=== PATIENT | female | born 1945 | race Caucasian/White ===

== ENCOUNTER 2017-10-19 03:54 | Emergency (ER) | payer MEDICAID, MEDICARE ==
[2017-10-19] MEDS ORDERED: fentaNYL* 50 MCG/ML 2 ML VIAL (100 MCG VIAL) IV SLOW PU ONE ×2 (04:20→05:54)
[2017-10-19] MEDS ORDERED: NS 0.9% 1000 ML* 1,000 ML IV ONE (04:20)
[2017-10-19] MEDS ORDERED: Ondansetron INJ* 2 MG/ML VIAL IV ONE (04:21)
[2017-10-19] MEDS ORDERED: diPHENhydraMINE IV* 50 MG/ML 1 ml VIAL (BENADRYL) SLOW PUSH ONE (04:47)
[2017-10-19] MEDS ORDERED: diPHENhydraMINE IV* 50 MG/ML 1 ml VIAL (BENADRYL) ONE (04:48)
[2017-10-19 04:50] LABS: ABS Basophils 0 10^3/ul (0-0.2); ABS Eosinophils 0.1 10^3/ul (0-0.6); ABS Lymphocytes 0.6 10^3/ul (1.0-4.8); ABS Monocytes 0.6 10^3/ul (0-0.8); ABS Neutrophils 6.9 10^3/ul (1.5-7.7); ABS Nucleated RBC 0 10^3/ul; Eosinophil % 1.2 % (0-6); Hematocrit 39 % (35-47); Hemoglobin 13.3 g/dl (12.0-16.0); Lymphocyte % 7.3 % (25-47); Mean Corpuscular HGB Conc 34 g/dl (31-36); Mean Corpuscular Hemoglobin 31 pg (27-31); Mean Corpuscular Volume 91 fL (80-97); Mean Platelet Volume 8.3 um3 (7.4-10.4); Nucleated Red Blood Cells % 0; Platelet Count 175 10^3/ul (150-450); Red Blood Count 4.33 10^6/ul (4.0-5.4); Red Cell Distribution Width 16 % (10.5-15); White Blood Count 8.2 10^3/ul (3.5-10.8)
[2017-10-19 04:59] LABS: EGFR Non-African American 44.9 (>60)
[2017-10-19] MEDS ORDERED: Tamsulosin CAP* 0.4 MG PO ONE (06:25)
[2017-10-19 06:50] LABS: Urine Appearance Clear; Urine Blood 1+ (Negative); Urine Color Yellow; Urine Ketones Negative (Negative); Urine Protein Negative (Negative); Urine Specific Gravity 1.016 (1.010-1.030); Urine Urobilinogen Negative (Negative)
--- NOTE | 2017-10-19 06:54 | ED ---
Cherelle Veloz Thomas, scribed for Alice Moy MD on 10/19/17 at 0424 . Abdominal Pain/Female - HPI Summary HPI Summary: The patient is a 72 year old female complaining of left flank pain that began two hours ago. The pain radiates to her LLQ. The patient additionally complains of nausea. The patient denies fever and vomiting. Past medical history includes kidney stones. - History of Current Complaint Chief Complaint: EDFlankPain Stated Complaint: LT FLANK PAIN Time Seen by Provider: 10/19/17 03:56 Hx Obtained From: Patient Onset/Duration: Lasting Hours - 2, Still Present Timing: Constant Severity Currently: Severe Pain Intensity: 10 Pain Scale Used: 0-10 Numeric Location: Flank - left Radiates: Yes Radiates to: LLQ Aggravating Factor(s): Nothing Alleviating Factor(s): Nothing Associated Signs and Symptoms: Positive: Nausea. Negative: Fever, Vomiting Allergies/Adverse Reactions: Allergies Allergy/AdvReac Type Severity Reaction Status Date / Time No Known Allergies Allergy Verified 10/19/17 04:06 PMH/Surg Hx/FS Hx/Imm Hx History: Reports: Hx Kidney Stones Opthamlomology History: Denies: Hx Legally Blind Infectious Disease History: No Infectious Disease History: Denies: Traveled Outside the [place] in Last 30 Days - Family History Known Family History: Positive: Other - Patient denies relevant FHx - Social History Alcohol Use: None Substance Use Type: Reports: None Smoking Status (MU): Former Smoker Review of Systems Negative: Fever Positive: Abdominal Pain - left flank, Nausea. Negative: Vomiting All Other Systems Reviewed And Are Negative: Yes Physical Exam - Summary Physical Exam Summary: VITAL SIGNS: Reviewed. GENERAL:~Patient is a well-developed and nourished female who is lying comfortable in the stretcher. Patient is not in any acute respiratory distress. HEAD AND FACE: No signs of trauma. No ecchymosis, hematomas or skull depressions. No sinus tenderness. EYES: PERRLA, EOMI x 2, No injected conjunctiva, no nystagmus. EARS: Hearing grossly intact. Ear canals and tympanic membranes are within normal limits. MOUTH: Oropharynx within normal limits. NECK: Supple, trachea is midline, no adenopathy, no JVD, no carotid bruit, no c- spine tenderness, neck with full ROM. CHEST: Symmetric, no tenderness at palpation LUNGS: Clear to auscultation bilaterally. No wheezing or crackles. CVS: Regular rate and rhythm, S1 and S2 present, no murmurs or gallops appreciated. ABDOMEN: Soft, non-tender. No signs of distention. No rebound no guarding, and no masses palpated. Bowel sounds are normal. BACK: She has left CVA tenderness. EXTREMITIES: FROM in all major joints, no edema, no cyanosis or clubbing. NEURO: Alert and oriented x 3. No acute neurological deficits. Speech is normal and follows commands. SKIN: Dry and warm Triage Information Reviewed: Yes Vital Signs On Initial Exam: Initial Vitals Temp Pulse Resp BP Pulse Ox 99.1 F 93 16 143/100 94 10/19/17 03:55 10/19/17 03:55 10/19/17 03:55 10/19/17 03:55 10/19/17 03:55 Vital Signs Reviewed: Yes Diagnostics - Vital Signs Vital Signs Temp Pulse Resp BP Pulse Ox 10/19/17 03:55 99.1 F 93 16 143/100 94 - Laboratory Result Diagrams: 10/19/17 04:34 10/19/17 04:34 Lab Statement: Any lab studies that have been ordered have been reviewed, and results considered in the medical decision making process. - CT CT Abdomen Pelvis CT Interpretation: Positive (See Comments) - 5 mm stone in the left UVJ with mild to moderate left nephrosis. Dr. Moy has reviewed this report. CT Interpretation Completed By: Radiologist Abdominal Pain Fem Course/Dx - Course Course Of Treatment: The patient is a 72 year old female complaining of left flank pain that began two hours ago. The pain radiates to her LLQ. The patient additionally complains of nausea. In the ED course, the patient was given Zofran , Fentanyl, and IV fluids. Bloodwork and urinalysis were obtained. CT Abdomen/ Pelvis shows a 5 mm stone in the left UVJ with mild to moderate left nephrosis. The patient is diagnosed with left ureteral stone. The patient will be discharged home to follow up with urology. - Diagnoses Provider Diagnoses: Left ureteral stone Discharge - Sign-Out/Discharge Documenting (check all that apply): Discharge/Admit/Transfer - Discharge Plan Condition: Stable Disposition: HOME Prescriptions: Oxycodone HCl/Acetaminophen [Percocet 5-325 mg Tablet] 1 each PO Q6HR PRN #14 tablet MDD 4 PRN Reason: Pain Tamsulosin CAP* [Flomax CAP*] 0.4 mg PO BEDTIME #7 cap Patient Education Materials: Ureteral Stones (ED) Referrals: [place] GARCIA,Jose [Medical Doctor] - If Needed Otto De Los Santos MD [Medical Doctor] - 3 Days Additional Instructions: Follow up with Dr. De Los Santos, urology, in three days. Return to the emergency department for any new or worsening symptoms. The documentation as recorded by the Cherelle otero Thomas accurately reflects the service I personally performed and the decisions made by me, Alice Moy MD.
[2017-10-19 07:56] VITALS: BP 121/82
--- NOTE | 2017-10-19 08:08 | RAD ---
CLINICAL HISTORY: Left flank pain radiating to the left lower quadrant in a woman with a history of renal calculi. COMPARISON: None TECHNIQUE: Noncontrast CT examination of the abdomen and pelvis from the lung bases through the initial tuberosities. FINDINGS: VISUALIZED LUNG BASES: The visualized lung bases are grossly clear. There is no pleural effusion. ABDOMEN AND PELVIS: Evaluation of the solid organs and vasculature is limited without intravenous contrast. There is a large cyst in left lobe of the liver measuring 8.3 cm in greatest dimension. A smaller fluid density cyst measuring less than a centimeters in the right lobe of the liver. The liver is otherwise homogenous in attenuation. The spleen, pancreas and adrenal glands are grossly normal in appearance. There is at least one 1.6 cm gallstone in the otherwise normal-appearing gallbladder. The right kidney is normal in appearance without focal mass, calcification or signs of hydronephrosis. At the left ureterovesical junction there is a 5 mm calcification (axial image 74 and coronal image 72). There is a [id number] amount of left-sided hydronephrosis. The small and large bowel are not distended.The patient's normal appendix is identified in the right lower quadrant (coronal image 56). There are distal colonic diverticula becoming more concentrated at the rectosigmoid colon. There is no gross retroperitoneal or mesenteric lymphadenopathy. The patient appears to be status post hysterectomy. Pessary device posterior to the urinary bladder is noted. There is coarse atherosclerotic calcification of the abdominal aorta extending into the iliac arteries. Degenerative changes include multilevel loss of intervertebral disc height involving the lower thoracic and lumbar spine.There are no sinister bone lesions. IMPRESSION: 1. There is a 5 mm calcification at the left ureterovesical junction with mild to moderate ipsilateral hydronephrosis. 2. Additional chronic, degenerative and iatrogenic findings described in the body of the report.
== END 2017-10-19 07:56 | disposition home or self-care (01) ==
LOC: ED 03:54
DX: N13.2 Hydronephrosis with renal and ureteral calculous obstruction (principal); Z87.442 Personal history of urinary calculi; R11.0 Nausea; Z87.891 Personal history of nicotine dependence
CPT/HCPCS: 36415; 74176; 80053; 81003; 81015; 83690; 83735; 85025; 86140; 87086; 96361; 96374; 96375; 99282; J1200; J2405; J3010

== ENCOUNTER 2018-06-13 20:59 | Emergency (ER) | payer MEDICARE, MEDICAID ==
[2018-06-13] MEDS ORDERED: diPHENhydraMINE PO* 25 MG PO ONE (22:16)
[2018-06-13] MEDS ORDERED: predniSONE TAB* 20 MG PO ONE (22:17)
[2018-06-13] MEDS ORDERED: Famotidine TAB* 20 MG PO ONE (22:17)
[2018-06-13] MEDS ORDERED: hydrOXYzine IM* 50 MG/ML VIAL IM ONE (23:48)
--- NOTE | 2018-06-14 01:30 | ED ---
Skin Complaint - HPI Summary HPI Summary: Patient complains of sudden onset red pruritic rash on bilateral inner thighs, abdomen, back, right arm starting last night. Denies oral swelling, sore throat , dysphagia, SOB. States history of new laundry detergent fabric softener x 2 days. Denies fever, cough, sore throat, CP, SOB, N/V/D, abdominal pain, change in urine, change in BM. Medical history COPD. - History of Current Complaint Chief Complaint: EDAllergicReaction Time Seen by Provider: 06/13/18 22:10 Stated Complaint: RASH Hx Obtained From: Patient Onset/Duration: Started Hours Ago Skin Exposure Onset/Duration: Hours Ago Timing: Constant Current Severity: None Pain Intensity: 0 Pain Scale Used: 0-10 Numeric Skin Location: Diffuse Aggravating Symptom(s): Nothing Alleviating Symptom(s): Nothing Associated Signs & Symptoms: Rash - Allergy/Home Medications Allergies/Adverse Reactions: Allergies Allergy/AdvReac Type Severity Reaction Status Date / Time No Known Allergies Allergy Verified 10/19/17 04:06 Home Medications: Home Medications Alendronate Sodium 06/14/18 [History] Fluticasone/Vilanterol MDI(NF) [Breo Ellipta MDI 100/25(NF)] 06/14/18 [History] Gabapentin CAP(*) [Neurontin 100 mg CAP(*)] 06/14/18 [History] Rosuvastatin Calcium 06/14/18 [History] Umeclidinium [place] [Incruse Ellipta] 06/14/18 [History] PMH/Surg Hx/FS Hx/Imm Hx Endocrine/Hematology History: Denies: Hx Anticoagulant Therapy History: Reports: Hx Kidney Stones Denies: Hx Dialysis Sensory History: Denies: Hx Eye Prosthesis, Hx Legally Blind Opthamlomology History: Denies: Hx Legally Blind Neurological History: Denies: Hx Developmental Delay Psychiatric History: Denies: Hx Autism Infectious Disease History: No Infectious Disease History: Denies: Traveled Outside the [place] in Last 30 Days - Family History Known Family History: Positive: Unknown, Other - Patient denies relevant FHx - Social History Alcohol Use: None Substance Use Type: Reports: None Smoking Status (MU): Former Smoker Review of Systems Constitutional: Negative Eyes: Negative ENT: Negative Cardiovascular: Negative Respiratory: Negative Gastrointestinal: Negative Genitourinary: Negative Musculoskeletal: Negative Positive: Rash Neurological: Negative Psychological: Normal All Other Systems Reviewed And Are Negative: Yes Physical Exam - Summary Physical Exam Summary: Red patchy rash noted to bilateral lower back, bilateral lower abdomen, right medial arm, bilateral inner thighs. Triage Information Reviewed: Yes Vital Signs On Initial Exam: Initial Vitals Temp Pulse Resp BP Pulse Ox 98.4 F 106 20 155/84 96 06/13/18 21:03 06/13/18 21:03 06/13/18 21:03 06/13/18 21:03 06/13/18 21:03 Vital Signs Reviewed: Yes Appearance: Positive: Well-Appearing Skin: Positive: Warm Head/Face: Positive: Normal Head/Face Inspection Eyes: Positive: Normal ENT: Positive: Normal ENT inspection Neck: Positive: Supple Respiratory/Lung Sounds: Positive: Clear to Auscultation Cardiovascular: Positive: Normal Abdomen Description: Positive: Nontender Musculoskeletal: Positive: Normal Neurological: Positive: Normal Psychiatric: Positive: Normal AVPU Assessment: Alert - [place] Coma Scale Best Eye Response: 4 - Spontaneous Best Motor Response: 6 - Obeys Commands Best Verbal Response: 5 - Oriented Coma Scale Total: 15 Diagnostics - Vital Signs Vital Signs Temp Pulse Resp BP Pulse Ox 06/14/18 01:05 98.8 F 06/14/18 00:41 86 125/92 91 06/14/18 00:11 93 123/84 94 06/14/18 00:00 87 94 06/13/18 23:47 88 94 06/13/18 23:41 87 127/77 95 06/13/18 23:11 83 108/79 94 06/13/18 23:00 91 96 06/13/18 22:41 87 118/81 93 06/13/18 22:11 81 137/78 93 06/13/18 22:10 98 92 06/13/18 21:03 98.4 F 106 20 155/84 96 - Laboratory Lab Statement: Any lab studies that have been ordered have been reviewed, and results considered in the medical decision making process. Course/Dx - Course Course Of Treatment: Patient complains of sudden onset red pruritic rash on bilateral inner thighs, abdomen, back, right arm starting last night. Denies oral swelling, sore throat, dysphagia, SOB. States history of new laundry detergent fabric softener x 2 days. Denies fever, cough, sore throat, CP, SOB, N/V/D, abdominal pain, change in urine, change in BM. Medical history COPD. Physical exam:Red patchy rash noted to bilateral lower back, bilateral lower abdomen, right medial arm, bilateral inner thighs. Vital signs within normal limits. No change with prednisone, Benadryl 50 by mouth and Pepcid 20 by mouth. Hydroxyzine 50 mg IM given with relief of pruritus and decrease in rash. Rx for prednisone 40 mg 5 days, hydroxyzine 50 mg by mouth 3 times a day. - Diagnoses Provider Diagnoses: Urticaria Discharge - Sign-Out/Discharge Documenting (check all that apply): Patient Departure - Discharge Plan Condition: Stable Disposition: HOME Prescriptions: hydrOXYzine HCL TAB* [Atarax TAB 50 MG *] 50 mg PO TID PRN 3 Days #9 tab PRN Reason: Itching predniSONE TAB* [Deltasone 20 MG TAB*] 40 mg PO DAILY 5 Days #10 tab Patient Education Materials: Urticaria (ED) Referrals: Samson Mendez [Primary Care Provider] - Additional Instructions: Take prednisone once daily for next 5 days. Take hydroxyzine if needed as directed. Follow-up with primary care. Discontinue use of new laundry detergent and fabric softener. - Billing Disposition and Condition Condition: STABLE Disposition: Home
[2018-06-14 01:38] VITALS: BP 119/68
== END 2018-06-14 01:37 | disposition home or self-care (01) ==
LOC: ED 20:59
DX: L50.9 Urticaria, unspecified (principal); Z87.891 Personal history of nicotine dependence
CPT/HCPCS: 96372; 99283; A9270-GY; J3410; J7512

== ENCOUNTER 2021-04-23 03:57 | Inpatient (IN) ==
[2021-04-23 06:23] LABS: ABS Lymphocytes 0.3 10^3/ul (1.0-4.8); ABS Monocytes 0.5 10^3/ul (0-0.8); ABS Neutrophils 4.1 10^3/ul (1.5-7.7); Eosinophil % 0.1 %; Hematocrit 39 % (35-47); Lymphocyte % 5.3 %; Mean Corpuscular HGB Conc 33 g/dL (31-36); Mean Corpuscular Hemoglobin 31 pg (27-31); Mean Corpuscular Volume 92 fL (80-97); Mean Platelet Volume 8.6 fL (7.4-10.4); Platelet Count 151 10^3/uL (150-450); Red Blood Count 4.22 10^6 /uL (3.70-4.87); Red Cell Distribution Width 16 % (10-15); White Blood Count 4.9 10^3/uL (3.5-10.8)
[2021-04-23 06:24] LABS: Urine Appearance Cloudy; Urine Bilirubin Negative (Negative); Urine Blood 1+ (Negative); Urine Color Yellow; Urine Glucose Negative (Negative); Urine Ketones Trace (Negative); Urine Nitrite Positive (Negative); Urine Protein 1+(30 mg/dL) (Negative); Urine Specific Gravity 1.012 (1.002-1.030); Urine Urobilinogen Negative (Negative)
[2021-04-23 06:27] LABS: Albumin/Globulin Ratio 1.2 (1-3); Calcium 8.8 mg/dL (8.6-10.3); Globulin 3.3 g/dL (2-4); Magnesium 2.1 mg/dL (1.9-2.7); Potassium 3.9 mmol/L (3.5-5.0); Total Bilirubin 0.4 mg/dL (0.2-1.0); Total Protein 7.3 g/dL (6.4-8.9)
[2021-04-23 06:29] LABS: Troponin I 0.01 ng/mL (<0.03)
[2021-04-23 06:33] LABS: Urine Bacteria 1+ (Absent); Urine Red Blood Cell 1+(3-5/hpf) (Absent); Urine Squamous Epithelial Cell Present (Absent); Urine White Blood Cell 3+(>20/hpf) (Absent)
[2021-04-23] MEDS ORDERED: Piperacillin/Tazobac ADVAN 3.375 GM in NS 0.9% 100 ml BAG 100 ML IV ONE (06:42)
[2021-04-23 07:02] LABS: TSH Ultra Thyroid Stim Horm 1.16 mcIU/mL (0.34-5.60)
[2021-04-23] MEDS ORDERED: Morphine 2 MG/ML SYRINGE IV ONE (08:25)
[2021-04-23] MEDS ORDERED: Albuterol HFA INHALER 8 gm MDI INH PRN (08:46)
[2021-04-23] MEDS ORDERED: Zosyn per Pharmacy NOTE FOLLOW UP SCH (09:00)
[2021-04-23 09:09] LABS: C Reactive Protein 13.85 mg/L (<8.01)
[2021-04-23 10:21] LABS: Erythrocyte Sed Rate 45 mm/Hr (0-29)
[2021-04-23] MEDS: ZOSYN 3.375 GM Q8H per EXTENDED INFUSION IV SCH ×3 (10:58→22:51)
[2021-04-23] MEDS: Heparin 5000 UNITS/ML 1 mL VIAL SUBCUT SCH ×2 (14:41→22:26)
[2021-04-23 16:12] LABS: Rapid COVID-19 Molecular Detected (Undetected)
[2021-04-23] MEDS: FLUTICAS/UMECLI/VILANT 100-62.5-25 MDI (NF) INH SCH (22:25)
[2021-04-24] MEDS: Heparin 5000 UNITS/ML 1 mL VIAL SUBCUT SCH ×3 (04:48→21:13)
[2021-04-24] MEDS: Nystatin TOP POWDER 15 GM BTL TOPICAL SCH ×3 (04:49→21:12)
[2021-04-24] MEDS: ZOSYN 3.375 GM Q8H per EXTENDED INFUSION IV SCH ×3 (04:49→21:13)
[2021-04-24] MEDS: SPIRIVA Respimat (tiotropium) 2.5 mcg/inh Inhaler INH SCH (13:12)
[2021-04-24] MEDS: FLUTICAS/UMECLI/VILANT 100-62.5-25 MDI (NF) INH SCH (14:49)
[2021-04-24] MEDS: NS 0.9% 1000 ml BAG 1,000 ML IV SCH (15:54)
[2021-04-24] MEDS: Mometasone/Formoter 100/5 MDI INH SCH (19:23)
[2021-04-25] MEDS: Mometasone/Formoter 100/5 MDI INH SCH ×2 (08:29→20:13)
[2021-04-25] MEDS: SPIRIVA Respimat (tiotropium) 2.5 mcg/inh Inhaler INH SCH (08:37)
[2021-04-25] MEDS: ZOSYN 3.375 GM Q8H per EXTENDED INFUSION IV SCH ×3 (08:49→23:18)
[2021-04-25] MEDS: NS 0.9% 1000 ml BAG 1,000 ML IV SCH (08:50)
[2021-04-25] MEDS: Heparin 5000 UNITS/ML 1 mL VIAL SUBCUT SCH ×3 (08:50→22:18)
[2021-04-25] MEDS: Nystatin TOP POWDER 15 GM BTL TOPICAL SCH ×2 (08:54→22:18)
[2021-04-26] MEDS: NS 0.9% 1000 ml BAG 1,000 ML IV SCH ×2 (00:09→15:48)
[2021-04-26] MEDS: ZOSYN 3.375 GM Q8H per EXTENDED INFUSION IV SCH ×3 (07:37→22:59)
[2021-04-26] MEDS: Heparin 5000 UNITS/ML 1 mL VIAL SUBCUT SCH ×3 (07:37→21:38)
[2021-04-26] MEDS: Nystatin TOP POWDER 15 GM BTL TOPICAL SCH ×2 (08:17→21:43)
[2021-04-26] MEDS: SPIRIVA Respimat (tiotropium) 2.5 mcg/inh Inhaler INH SCH (08:35)
[2021-04-26] MEDS: Mometasone/Formoter 100/5 MDI INH SCH ×2 (08:36→20:47)
[2021-04-26 11:41] LABS: ABS Lymphocytes 0.3 10^3/ul (1.0-4.8); ABS Monocytes 0.2 10^3/ul (0-0.8); ABS Neutrophils 2.8 10^3/ul (1.5-7.7); Hematocrit 36 % (35-47); Hemoglobin 11.8 g/dL (12.0-16.0); Lymphocyte % 8.8 %; Mean Corpuscular HGB Conc 33 g/dL (31-36); Mean Corpuscular Hemoglobin 30 pg (27-31); Mean Corpuscular Volume 91 fL (80-97); Mean Platelet Volume 7.6 fL (7.4-10.4); Platelet Count 116 10^3/uL (150-450); Red Blood Count 3.91 10^6 /uL (3.70-4.87); Red Cell Distribution Width 16 % (10-15); White Blood Count 3.4 10^3/uL (3.5-10.8)
[2021-04-26 12:00] LABS: Calcium 7.7 mg/dL (8.6-10.3); Potassium 3.3 mmol/L (3.5-5.0)
[2021-04-26] MEDS ORDERED: Potassium Chlor 20 meq TAB.ER PO ONE (14:04)
[2021-04-26] MEDS ORDERED: Remdesivir 100 mg Vial 200 MG in NS 0.9% 250 ml 210 ML IV ONE ×2 (15:54→21:00)
[2021-04-26 19:02] LABS: INR 1.04 (0.86-1.15)
[2021-04-26 19:04] LABS: Albumin 3.1 g/dL (3.2-5.2); Calcium 7.5 mg/dL (8.6-10.3); Total Bilirubin 0.3 mg/dL (0.2-1.0)
[2021-04-26 19:10] LABS: Albumin/Globulin Ratio 1.2 (1-3); Globulin 2.6 g/dL (2-4); Total Protein 5.7 g/dL (6.4-8.9)
[2021-04-27] MEDS: ZOSYN 3.375 GM Q8H per EXTENDED INFUSION IV SCH ×3 (05:55→19:00)
[2021-04-27] MEDS: NS 0.9% 1000 ml BAG 1,000 ML IV SCH (05:55)
[2021-04-27] MEDS: Heparin 5000 UNITS/ML 1 mL VIAL SUBCUT SCH ×2 (06:08→14:25)
[2021-04-27 07:05] LABS: ABS Lymphocytes 0.2 10^3/ul (1.0-4.8); ABS Monocytes 0.1 10^3/ul (0-0.8); ABS Neutrophils 2.2 10^3/ul (1.5-7.7); Hematocrit 37 % (35-47); Hemoglobin 12.5 g/dL (12.0-16.0); Lymphocyte % 8.3 %; Mean Corpuscular HGB Conc 34 g/dL (31-36); Mean Corpuscular Hemoglobin 31 pg (27-31); Mean Corpuscular Volume 92 fL (80-97); Platelet Count 107 10^3/uL (150-450); Red Blood Count 4.05 10^6 /uL (3.70-4.87); Red Cell Distribution Width 16 % (10-15); White Blood Count 2.5 10^3/uL (3.5-10.8)
[2021-04-27 07:13] LABS: INR 1.04 (0.86-1.15)
[2021-04-27 07:22] LABS: Albumin 3.2 g/dL (3.2-5.2); Globulin 3.2 g/dL (2-4); Total Bilirubin 0.3 mg/dL (0.2-1.0); Total Protein 6.4 g/dL (6.4-8.9)
[2021-04-27] MEDS: Mometasone/Formoter 100/5 MDI INH SCH ×2 (08:15→20:51)
[2021-04-27] MEDS: SPIRIVA Respimat (tiotropium) 2.5 mcg/inh Inhaler INH SCH (08:15)
[2021-04-27] MEDS: Nystatin TOP POWDER 15 GM BTL TOPICAL SCH ×2 (09:49→22:31)
[2021-04-27] MEDS ORDERED: cefTRIAXone 1 gm/50 mL NS BAG 1 GM/50 ML BAG IVPB SCH (21:00)
[2021-04-27] MEDS ORDERED: Remdesivir 100 mg Vial 100 MG in NS 0.9% 250 ml 230 ML IV SCH (21:00)
[2021-04-27] MEDS: Enoxaparin 40 MG/0.4 ML SYR SUBCUT SCH (22:23)
[2021-04-28 07:08] LABS: ABS Lymphocytes 0.4 10^3/ul (1.0-4.8); ABS Monocytes 0.4 10^3/ul (0-0.8); ABS Neutrophils 3.2 10^3/ul (1.5-7.7); Hematocrit 38 % (35-47); Hemoglobin 13.2 g/dL (12.0-16.0); Lymphocyte % 9.2 %; Mean Corpuscular HGB Conc 34 g/dL (31-36); Mean Corpuscular Hemoglobin 31 pg (27-31); Mean Corpuscular Volume 90 fL (80-97); Mean Platelet Volume 7.9 fL (7.4-10.4); Platelet Count 138 10^3/uL (150-450); Red Blood Count 4.26 10^6 /uL (3.70-4.87); Red Cell Distribution Width 16 % (10-15); White Blood Count 3.9 10^3/uL (3.5-10.8)
[2021-04-28 07:13] LABS: INR 1.08 (0.86-1.15)
[2021-04-28 07:25] LABS: Albumin 3.5 g/dL (3.2-5.2); Calcium 8.8 mg/dL (8.6-10.3); Globulin 3.5 g/dL (2-4); Potassium 3.7 mmol/L (3.5-5.0); Total Bilirubin 0.4 mg/dL (0.2-1.0)
[2021-04-28] MEDS: Nystatin TOP POWDER 15 GM BTL TOPICAL SCH ×2 (07:37→23:00)
[2021-04-28] MEDS: SPIRIVA Respimat (tiotropium) 2.5 mcg/inh Inhaler INH SCH (08:23)
[2021-04-28] MEDS: Mometasone/Formoter 100/5 MDI INH SCH ×2 (08:23→20:21)
[2021-04-28] MEDS: Remdesivir 100 mg Vial 100 MG in NS 0.9% 250 ml 230 ML IV SCH (10:26)
[2021-04-28] MEDS: cefTRIAXone 1 gm/50 mL NS BAG 1 GM/50 ML BAG IVPB SCH (11:56)
[2021-04-28] MEDS ORDERED: Lidocaine PATCH 5% PATCH TRANSDERM ONE (16:28)
[2021-04-28] MEDS ORDERED: HYDROcodone/ACETAMIN 5/325 mg TAB PO ONE (18:30)
[2021-04-28] MEDS: Enoxaparin 40 MG/0.4 ML SYR SUBCUT SCH (22:59)
[2021-04-29 06:43] LABS: INR 1.07 (0.86-1.15)
[2021-04-29 07:00] LABS: Albumin 3.1 g/dL (3.2-5.2); Calcium 8.4 mg/dL (8.6-10.3); Globulin 3.1 g/dL (2-4); Potassium 3.6 mmol/L (3.5-5.0); Total Bilirubin 0.3 mg/dL (0.2-1.0); Total Protein 6.2 g/dL (6.4-8.9)
[2021-04-29] MEDS: Mometasone/Formoter 100/5 MDI INH SCH ×2 (08:22→19:39)
[2021-04-29] MEDS: SPIRIVA Respimat (tiotropium) 2.5 mcg/inh Inhaler INH SCH (08:28)
[2021-04-29] MEDS: Remdesivir 100 mg Vial 100 MG in NS 0.9% 250 ml 230 ML IV SCH (10:21)
[2021-04-29] MEDS: cefTRIAXone 1 gm/50 mL NS BAG 1 GM/50 ML BAG IVPB SCH (13:06)
[2021-04-29] MEDS: Nystatin TOP POWDER 15 GM BTL TOPICAL SCH ×2 (13:10→20:40)
[2021-04-29] MEDS: Enoxaparin 40 MG/0.4 ML SYR SUBCUT SCH (20:39)
[2021-04-29] MEDS: Lidocaine Patch REMOVE PATCH PATCH OFF SCH (21:01)
[2021-04-30 05:17] LABS: INR 1.07 (0.86-1.15)
[2021-04-30 05:37] LABS: Albumin 3.2 g/dL (3.2-5.2); Calcium 8.4 mg/dL (8.6-10.3); Potassium 3.5 mmol/L (3.5-5.0); Total Bilirubin 0.4 mg/dL (0.2-1.0)
[2021-04-30 05:38] LABS: ABS Lymphocytes 0.3 10^3/ul (1.0-4.8); ABS Monocytes 0.5 10^3/ul (0-0.8); ABS Neutrophils 3.4 10^3/ul (1.5-7.7); Hematocrit 42 % (35-47); Hemoglobin 13.8 g/dL (12.0-16.0); Lymphocyte % 7.3 %; Mean Corpuscular HGB Conc 33 g/dL (31-36); Mean Corpuscular Hemoglobin 30 pg (27-31); Mean Corpuscular Volume 91 fL (80-97); Mean Platelet Volume 8.3 fL (7.4-10.4); Nucleated Red Blood Cells % 0.1; Platelet Count 119 10^3/uL (150-450); Red Blood Count 4.59 10^6 /uL (3.70-4.87); Red Cell Distribution Width 16 % (10-15); White Blood Count 4.3 10^3/uL (3.5-10.8)
[2021-04-30 05:43] LABS: Albumin/Globulin Ratio 1.1 (1-3); Total Protein 6.2 g/dL (6.4-8.9)
[2021-04-30] MEDS: Mometasone/Formoter 100/5 MDI INH SCH ×2 (08:36→19:52)
[2021-04-30] MEDS: SPIRIVA Respimat (tiotropium) 2.5 mcg/inh Inhaler INH SCH (08:40)
[2021-04-30] MEDS: Remdesivir 100 mg Vial 100 MG in NS 0.9% 250 ml 230 ML IV SCH (09:42)
[2021-04-30] MEDS: Nystatin TOP POWDER 15 GM BTL TOPICAL SCH ×2 (09:50→21:29)
[2021-04-30] MEDS: cefTRIAXone 1 gm/50 mL NS BAG 1 GM/50 ML BAG IVPB SCH (12:03)
[2021-04-30] MEDS: Enoxaparin 40 MG/0.4 ML SYR SUBCUT SCH (21:26)
[2021-04-30] MEDS: Lidocaine Patch REMOVE PATCH PATCH OFF SCH (21:28)
[2021-05-01 04:08] VITALS: BP 120/63
[2021-05-01 06:28] LABS: INR 1.1 (0.86-1.15)
== END 2021-04-30 16:09 | disposition swing bed (61) | DRG 178 ==
LOC: ED 03:57 → SUATTDRO 08:36 → EDHOLD 08:36 → MED 16:10
PROVIDERS: ADMIT Hospitalist; ATTEND Internal Medicine

== ENCOUNTER 2021-04-30 16:10 | Inpatient (IN) ==
[2021-04-30] MEDS ORDERED: Albuterol HFA INHALER 8 gm MDI INH PRN (16:57)
[2021-04-30] MEDS ORDERED: Enoxaparin 40 MG/0.4 ML SYR SUBCUT SCH (17:00)
[2021-05-01] MEDS: Mometasone/Formoter 100/5 MDI INH SCH ×3 (07:56→20:05)
[2021-05-01] MEDS: SPIRIVA Respimat (tiotropium) 2.5 mcg/inh Inhaler INH SCH (07:57)
[2021-05-01] MEDS: Nystatin TOP POWDER 15 GM BTL TOPICAL SCH ×3 (08:17→22:43)
[2021-05-01 08:54] LABS: Hematocrit 37 % (35-47); Hemoglobin 12.3 g/dL (12.0-16.0); Mean Corpuscular HGB Conc 34 g/dL (31-36); Mean Corpuscular Hemoglobin 30 pg (27-31); Mean Corpuscular Volume 89 fL (80-97); Mean Platelet Volume 7.9 fL (7.4-10.4); Platelet Count 187 10^3/uL (150-450); Red Blood Count 4.11 10^6 /uL (3.70-4.87); Red Cell Distribution Width 16 % (10-15); White Blood Count 4.7 10^3/uL (3.5-10.8)
[2021-05-01 09:17] LABS: Albumin 3.2 g/dL (3.2-5.2); Calcium 8.5 mg/dL (8.6-10.3); Globulin 3.2 g/dL (2-4); Potassium 3.6 mmol/L (3.5-5.0); Total Bilirubin 0.5 mg/dL (0.2-1.0); Total Protein 6.4 g/dL (6.4-8.9)
[2021-05-01] MEDS ORDERED: Remdesivir 100 mg Vial 100 MG in NS 0.9% 250 ml 230 ML IV ONE (11:00)
[2021-05-01 11:25] LABS: ABS Lymphocytes 0.3 10^3/ul (1.0-4.8); ABS Monocytes 0.6 10^3/ul (0-0.8); ABS Neutrophils 3.8 10^3/ul (1.5-7.7); Lymphocyte % 6.5 %
[2021-05-01] MEDS: Enoxaparin 40 MG/0.4 ML SYR SUBCUT SCH (17:31)
[2021-05-02] MEDS: SPIRIVA Respimat (tiotropium) 2.5 mcg/inh Inhaler INH SCH (07:27)
[2021-05-02] MEDS: Mometasone/Formoter 100/5 MDI INH SCH ×2 (07:27→19:55)
[2021-05-02] MEDS: Nystatin TOP POWDER 15 GM BTL TOPICAL SCH ×2 (09:07→20:23)
[2021-05-02] MEDS: Enoxaparin 40 MG/0.4 ML SYR SUBCUT SCH (17:14)
[2021-05-03] MEDS: Mometasone/Formoter 100/5 MDI INH SCH ×2 (07:40→19:15)
[2021-05-03] MEDS: SPIRIVA Respimat (tiotropium) 2.5 mcg/inh Inhaler INH SCH (07:41)
[2021-05-03] MEDS: Nystatin TOP POWDER 15 GM BTL TOPICAL SCH ×2 (07:48→21:56)
[2021-05-03 08:54] LABS: Rapid COVID-19 Molecular Detected (Undetected)
[2021-05-03 10:11] LABS: Albumin 3.3 g/dL (3.2-5.2); Calcium 8.9 mg/dL (8.6-10.3); Globulin 3.2 g/dL (2-4); Potassium 3.4 mmol/L (3.5-5.0); Total Bilirubin 0.5 mg/dL (0.2-1.0); Total Protein 6.5 g/dL (6.4-8.9)
[2021-05-03 11:37] LABS: Magnesium 2.2 mg/dL (1.9-2.7)
[2021-05-03] MEDS ORDERED: KCL 20 MEQ/100 ML IVPREMIX 20 MEQ/100 ML BAG IV SCH (12:00)
[2021-05-03] MEDS ORDERED: Potassium Chlor 20 meq TAB.ER PO ONE (12:50)
[2021-05-03] MEDS: Potassium Chlor 20 meq TAB.ER PO SCH ×2 (17:21→21:52)
[2021-05-03] MEDS: Enoxaparin 40 MG/0.4 ML SYR SUBCUT SCH (17:21)
[2021-05-04] MEDS: Nystatin TOP POWDER 15 GM BTL TOPICAL SCH ×2 (07:44→22:58)
[2021-05-04] MEDS: SPIRIVA Respimat (tiotropium) 2.5 mcg/inh Inhaler INH SCH (08:25)
[2021-05-04] MEDS: Mometasone/Formoter 100/5 MDI INH SCH ×2 (08:27→21:15)
[2021-05-04 10:53] LABS: Rapid COVID-19 Molecular Detected (Undetected)
[2021-05-04] MEDS: Enoxaparin 40 MG/0.4 ML SYR SUBCUT SCH (15:33)
[2021-05-05] MEDS: Mometasone/Formoter 100/5 MDI INH SCH ×2 (07:13→19:32)
[2021-05-05] MEDS: SPIRIVA Respimat (tiotropium) 2.5 mcg/inh Inhaler INH SCH (07:13)
[2021-05-05] MEDS: Nystatin TOP POWDER 15 GM BTL TOPICAL SCH ×2 (09:44→20:21)
[2021-05-05] MEDS: Enoxaparin 40 MG/0.4 ML SYR SUBCUT SCH (16:47)
[2021-05-06] MEDS: SPIRIVA Respimat (tiotropium) 2.5 mcg/inh Inhaler INH SCH (08:02)
[2021-05-06] MEDS: Mometasone/Formoter 100/5 MDI INH SCH ×2 (08:02→20:36)
[2021-05-06] MEDS: Nystatin TOP POWDER 15 GM BTL TOPICAL SCH ×2 (08:24→19:51)
[2021-05-06 12:40] LABS: Rapid COVID-19 Molecular Undetected (Undetected)
[2021-05-06] MEDS ORDERED: Morphine 2 MG/ML SYRINGE IV ONE (14:56)
[2021-05-06] MEDS: Enoxaparin 40 MG/0.4 ML SYR SUBCUT SCH (17:29)
[2021-05-07] MEDS: Mometasone/Formoter 100/5 MDI INH SCH ×2 (07:48→18:28)
[2021-05-07] MEDS: SPIRIVA Respimat (tiotropium) 2.5 mcg/inh Inhaler INH SCH (07:49)
[2021-05-07] MEDS: Nystatin TOP POWDER 15 GM BTL TOPICAL SCH ×2 (08:36→19:41)
[2021-05-07] MEDS: Enoxaparin 40 MG/0.4 ML SYR SUBCUT SCH (15:56)
[2021-05-07] MEDS: Calcium Carb (TUMS) 500 mg CHEW TAB PO PRN (19:39)
[2021-05-08] MEDS: SPIRIVA Respimat (tiotropium) 2.5 mcg/inh Inhaler INH SCH (07:48)
[2021-05-08] MEDS: Mometasone/Formoter 100/5 MDI INH SCH ×2 (07:48→20:24)
[2021-05-08] MEDS: Nystatin TOP POWDER 15 GM BTL TOPICAL SCH ×2 (10:35→19:14)
[2021-05-08] MEDS: Enoxaparin 40 MG/0.4 ML SYR SUBCUT SCH (15:20)
[2021-05-09] MEDS: SPIRIVA Respimat (tiotropium) 2.5 mcg/inh Inhaler INH SCH (07:55)
[2021-05-09] MEDS: Mometasone/Formoter 100/5 MDI INH SCH ×2 (07:55→20:45)
[2021-05-09] MEDS: Nystatin TOP POWDER 15 GM BTL TOPICAL SCH ×2 (08:56→19:39)
[2021-05-09] MEDS: Enoxaparin 40 MG/0.4 ML SYR SUBCUT SCH (16:35)
[2021-05-09] MEDS: Calcium Carb (TUMS) 500 mg CHEW TAB PO PRN (19:55)
[2021-05-10] MEDS: SPIRIVA Respimat (tiotropium) 2.5 mcg/inh Inhaler INH SCH (08:03)
[2021-05-10] MEDS: Mometasone/Formoter 100/5 MDI INH SCH ×2 (08:03→21:03)
[2021-05-10] MEDS: Nystatin TOP POWDER 15 GM BTL TOPICAL SCH ×2 (08:08→20:58)
[2021-05-10 10:47] LABS: Calcium 9.2 mg/dL (8.6-10.3); Potassium 3.9 mmol/L (3.5-5.0)
[2021-05-10] MEDS ORDERED: Iohexol 350 (CONTRAST) 500 ML MDV IV ONE (11:21)
[2021-05-10] MEDS ORDERED: Furosemide 40 mg/4 ml IV VIAL IV SLOW PU ONE (14:47)
[2021-05-10] MEDS: Enoxaparin 40 MG/0.4 ML SYR SUBCUT SCH (15:25)
[2021-05-11] MEDS: Nystatin TOP POWDER 15 GM BTL TOPICAL SCH ×2 (07:50→20:05)
[2021-05-11] MEDS: Mometasone/Formoter 100/5 MDI INH SCH ×2 (08:29→21:58)
[2021-05-11] MEDS: SPIRIVA Respimat (tiotropium) 2.5 mcg/inh Inhaler INH SCH (08:30)
[2021-05-11] MEDS ORDERED: Furosemide 40 mg/4 ml IV VIAL IV SLOW PU ONE (15:20)
[2021-05-11] MEDS: Enoxaparin 40 MG/0.4 ML SYR SUBCUT SCH (15:30)
[2021-05-12] MEDS: Nystatin TOP POWDER 15 GM BTL TOPICAL SCH ×2 (08:20→19:42)
[2021-05-12] MEDS: SPIRIVA Respimat (tiotropium) 2.5 mcg/inh Inhaler INH SCH (09:53)
[2021-05-12] MEDS: Mometasone/Formoter 100/5 MDI INH SCH ×2 (09:54→20:08)
[2021-05-12] MEDS: Calcium Carb (TUMS) 500 mg CHEW TAB PO PRN (11:53)
[2021-05-12] MEDS ORDERED: Enoxaparin 40 MG/0.4 ML SYR SUBCUT SCH (15:00)
[2021-05-12 16:52] LABS: Rapid COVID-19 Molecular Undetected (Undetected)
[2021-05-13] MEDS: Nystatin TOP POWDER 15 GM BTL TOPICAL SCH (09:41)
[2021-05-13 09:48] VITALS: BP 105/53
[2021-05-13] MEDS: Mometasone/Formoter 100/5 MDI INH SCH (09:50)
[2021-05-13] MEDS: SPIRIVA Respimat (tiotropium) 2.5 mcg/inh Inhaler INH SCH (09:50)
== END 2021-05-13 14:00 | DRG 177 ==
LOC: MED 16:10 → SUATTDRO 16:10 → MED 05-05 20:41
PROVIDERS: ADMIT Hospitalist; ATTEND Internal Medicine

== ENCOUNTER 2024-03-08 15:21 | Inpatient (IN) ==
[2024-03-08 16:54] LABS: ABS Eosinophils 0.1 10^3/uL (0.0-0.5); ABS Lymphocytes 0.9 10^3/uL (1.0-4.8); ABS Monocytes 0.4 10^3/uL (0.0-0.9); ABS Neutrophils 4.3 10^3/uL (1.5-7.6); Eosinophil % 1.7 %; Hemoglobin 12.5 g/dL (11.5-14.3); Lymphocyte % 15.3 %; Mean Corpuscular Hemoglobin 30.4 pg (27-33); Mean Platelet Volume 8.4 fL (7.5-11.2); Nucleated Red Blood Cells % 0.1 %/100WBC (0.0-0.8); Platelet Count 221 10^3/uL (150-450); Red Blood Count 4.13 10^6/uL (3.63-4.92); Red Cell Distribution Width 14.2 % (12-17); White Blood Count 5.6 10^3/uL (3.8-11.8)
[2024-03-08 17:10] LABS: INR 1.01 (0.85-1.14)
[2024-03-08 17:29] LABS: Albumin 3.9 g/dL (3.2-5.2); Albumin/Globulin Ratio 1.4 (1-3); C Reactive Protein 10.28 mg/L (<8.01); Calcium 9.4 mg/dL (8.6-10.3); Creatinine, Serum 1.24 mg/dL (0.51-0.95); Globulin 2.7 g/dL (2-4); Total Bilirubin 0.5 mg/dL (0.2-1.0); Total Protein 6.6 g/dL (6.4-8.9); eGFR CKD-EPI 44.3 (>60)
[2024-03-08 17:36] LABS: TSH Ultra Thyroid Stim Horm 3.17 mcIU/mL (0.34-5.60)
[2024-03-08] MEDS: Iodixanol (CONTRAST) 320 MG/ML 100 ML SDV IV ONE (17:59)
[2024-03-08 18:38] LABS: High Sensitivity Troponin 1 Hr 7 pg/mL (<15)
[2024-03-08 18:52] LABS: Urine Appearance Extra Turbid; Urine Bilirubin Negative (Negative); Urine Blood 3+ (Negative); Urine Glucose Negative (Negative); Urine Ketones Negative (Negative); Urine Nitrite Negative (Negative); Urine Protein 1+ (>=30 mg/dL) (Negative); Urine Specific Gravity 1.021 (1.002-1.030); Urine Urobilinogen Negative (Negative); Urine pH 6.5 (5.0-8.0)
[2024-03-08] MEDS: oxyCODONE/Acetamin 5/325 mg TAB PO ONE (18:57)
[2024-03-08 19:15] LABS: Urine Bacteria Absent /HPF (Absent); Urine Red Blood Cell 3+(>10/hpf) /HPF (0-Trace); Urine Squamous Epithelial Cell Present /HPF (Absent); Urine White Blood Cell 3+(>20/hpf) /HPF (0-Trace)
[2024-03-08 19:30] LABS: Urine Color Straw
[2024-03-08] MEDS: cefTRIAXone 1 gm/50 mL D5W 1 GM/50 ML BAG IV ONE (19:59)
[2024-03-09] MEDS ORDERED: Senna TAB 8.6 mg TAB PO PRN (10:49)
[2024-03-09] MEDS ORDERED: Polyethylene Glycol 3350 17 GM PACKET PO PRN (10:49)
[2024-03-09] MEDS: Enoxaparin 40 MG/0.4 ML SYR SUBCUT SCH (11:29)
[2024-03-09] MEDS: CMCS: FLUTICAS/UMECLI/VILANT 100-62.5-25 MDI (NF) INH SCH (15:54)
[2024-03-09] MEDS: cefTRIAXone 1 gm/50 mL D5W 1 GM/50 ML BAG IV SCH (17:04)
[2024-03-09] MEDS ORDERED: cefTRIAXone 1 gm/50 mL D5W 1 GM/50 ML BAG IV SCH (18:00)
[2024-03-10 07:46] LABS: ABS Eosinophils 0.1 10^3/uL (0.0-0.5); ABS Lymphocytes 1.2 10^3/uL (1.0-4.8); ABS Monocytes 0.3 10^3/uL (0.0-0.9); ABS Neutrophils 2.3 10^3/uL (1.5-7.6); Eosinophil % 3.4 %; Hematocrit 32.5 % (35-45); Hemoglobin 11.2 g/dL (11.5-14.3); Lymphocyte % 29.1 %; Mean Corpuscular Hemoglobin 31.3 pg (27-33); Mean Corpuscular Hgb Conc 34.5 g/dL (31-36); Mean Corpuscular Volume 90.7 fL (80-97); Mean Platelet Volume 8.8 fL (7.5-11.2); Nucleated Red Blood Cells % 0.1 %/100WBC (0.0-0.8); Platelet Count 153 10^3/uL (150-450); Red Blood Count 3.58 10^6/uL (3.63-4.92); Red Cell Distribution Width 14.4 % (12-17)
[2024-03-10 08:07] LABS: Calcium 8.8 mg/dL (8.6-10.3); Creatinine, Serum 0.91 mg/dL (0.51-0.95); Potassium 3.9 mmol/L (3.5-5.0); eGFR CKD-EPI 64.2 (>60)
[2024-03-10] MEDS: cefTRIAXone 1 gm/50 mL D5W 1 GM/50 ML BAG IV SCH (17:42)
[2024-03-11] MEDS: PEG 3000 GI LAVAGE 1 GALLON PO ONE (17:00)
[2024-03-11] MEDS: oxyCODONE/Acetamin 5/325 mg TAB PO PRN (23:02)
[2024-03-12] MEDS ORDERED: fentaNYL 100 mcg/2 ml 50 MCG/ML VIAL ONE (14:29)
[2024-03-12] MEDS ORDERED: Midazolam 10 mg/10 ml VIAL 1 mg/ml 10 ml VIAL (10 mg) ONE (14:29)
[2024-03-13] MEDS: Iohexol 350 (CONTRAST) 500 ML MDV IV ONE (14:07)
[2024-03-15] MEDS: fentaNYL 100 mcg/2 ml 50 MCG/ML VIAL ONE (13:15)
[2024-03-15] MEDS: PEG 3000 GI LAVAGE 1 GALLON PO ONE (18:06)
[2024-03-16] MEDS ORDERED: fentaNYL 100 mcg/2 ml 50 MCG/ML VIAL ONE (14:17)
[2024-03-16] MEDS ORDERED: Midazolam 10 mg/10 ml VIAL 1 mg/ml 10 ml VIAL (10 mg) ONE (14:17)
[2024-03-16] MEDS ORDERED: Naloxone 0.4 mg VIAL 0.4 mg/ml 1 ml VIAL IV PUSH PRN (14:18)
[2024-03-16] MEDS ORDERED: Flumazenil 0.5 mg/5 ml 0.1 MG/ML 5 ml VIAL IV PRN (14:18)
[2024-03-16] MEDS: fentaNYL 100 mcg/2 ml 50 MCG/ML VIAL IV SLOW PU ONE (16:50)
[2024-03-16] MEDS: Lactated Ringers 1000 ml BAG 1,000 ML IV ONE (16:50)
[2024-03-16] MEDS: Midazolam 10 mg/10 ml VIAL 1 mg/ml 10 ml VIAL (10 mg) IV SLOW PU ONE (16:50)
[2024-03-16] MEDS: Ondansetron 4 mg VIAL 2 MG/ML 2 ml VIAL IV ONE (16:50)
[2024-03-16 17:10] LABS: ABS Eosinophils 0.1 10^3/uL (0.0-0.5); ABS Lymphocytes 0.7 10^3/uL (1.0-4.8); ABS Monocytes 0.3 10^3/uL (0.0-0.9); ABS Neutrophils 3.3 10^3/uL (1.5-7.6); Eosinophil % 2.6 %; Hematocrit 35.9 % (35-45); Hemoglobin 12.1 g/dL (11.5-14.3); Lymphocyte % 16.3 %; Mean Corpuscular Hgb Conc 33.7 g/dL (31-36); Mean Corpuscular Volume 91.9 fL (80-97); Mean Platelet Volume 8.3 fL (7.5-11.2); Platelet Count 158 10^3/uL (150-450); Red Blood Count 3.91 10^6/uL (3.63-4.92); Red Cell Distribution Width 14.8 % (12-17); White Blood Count 4.5 10^3/uL (3.8-11.8)
[2024-03-16 18:12] LABS: Blood Urea Nitrogen 15 mg/dL (6-24); CO2 Carbon Dioxide 25 mmol/L (22-32); Calcium 8.7 mg/dL (8.6-10.3); Chloride 107 mmol/L (101-111); Creatinine, Serum 0.72 mg/dL (0.51-0.95); Glucose 81 mg/dL (70-100); Sodium 142 mmol/L (135-145)
[2024-03-16 18:16] LABS: Potassium, Whole Blood 3.6 mmol/L (3.4-4.5)
[2024-03-16 18:18] LABS: Anion Gap 10 mmol/L (2-16)
[2024-03-16] MEDS: Iohexol 300 (CONTRAST) 10 ML SDV IV ONE ×2 (19:28→20:13)
[2024-03-17 05:44] LABS: ABS Basophils 0.1 10^3/uL (0.0-0.1); ABS Eosinophils 0.2 10^3/uL (0.0-0.5); ABS Lymphocytes 0.9 10^3/uL (1.0-4.8); ABS Monocytes 0.4 10^3/uL (0.0-0.9); ABS Neutrophils 3.4 10^3/uL (1.5-7.6); Eosinophil % 3.6 %; Hematocrit 35.8 % (35-45); Hemoglobin 12.3 g/dL (11.5-14.3); Mean Corpuscular Hemoglobin 31.4 pg (27-33); Mean Corpuscular Hgb Conc 34.4 g/dL (31-36); Mean Corpuscular Volume 91.1 fL (80-97); Mean Platelet Volume 8.3 fL (7.5-11.2); Platelet Count 164 10^3/uL (150-450); Red Blood Count 3.93 10^6/uL (3.63-4.92); Red Cell Distribution Width 14.1 % (12-17); White Blood Count 4.9 10^3/uL (3.8-11.8)
[2024-03-17 06:05] LABS: Calcium 8.9 mg/dL (8.6-10.3); Creatinine, Serum 0.71 mg/dL (0.51-0.95); Potassium 3.9 mmol/L (3.5-5.0); eGFR CKD-EPI 86.4 (>60)
[2024-03-17 06:19] LABS: Carcinoembryonic Antigen 9.4 ng/mL (0.1-5.0)
[2024-03-18 07:27] LABS: ABS Eosinophils 0.2 10^3/uL (0.0-0.5); ABS Lymphocytes 1.1 10^3/uL (1.0-4.8); ABS Monocytes 0.5 10^3/uL (0.0-0.9); ABS Neutrophils 3.5 10^3/uL (1.5-7.6); ABS Nucleated RBC 0.01 10^3/ul; Eosinophil % 3.2 %; Hematocrit 37.3 % (35-45); Hemoglobin 12.5 g/dL (11.5-14.3); Lymphocyte % 21.5 %; Mean Corpuscular Hemoglobin 30.9 pg (27-33); Mean Corpuscular Hgb Conc 33.6 g/dL (31-36); Mean Corpuscular Volume 91.8 fL (80-97); Nucleated Red Blood Cells % 0.2 %/100WBC (0.0-0.8); Platelet Count 173 10^3/uL (150-450); Red Blood Count 4.06 10^6/uL (3.63-4.92); Red Cell Distribution Width 14.5 % (12-17); White Blood Count 5.3 10^3/uL (3.8-11.8)
[2024-03-18 07:44] LABS: Albumin 3.5 g/dL (3.2-5.2); Albumin/Globulin Ratio 1.5 (1-3); Creatinine, Serum 0.82 mg/dL (0.51-0.95); Globulin 2.4 g/dL (2-4); Total Bilirubin 0.3 mg/dL (0.2-1.0); Total Protein 5.9 g/dL (6.4-8.9); eGFR CKD-EPI 72.7 (>60)
[2024-03-19 07:00] LABS: Albumin 3.3 g/dL (3.2-5.2); Albumin/Globulin Ratio 1.4 (1-3); Calcium 8.8 mg/dL (8.6-10.3); Creatinine, Serum 0.91 mg/dL (0.51-0.95); Globulin 2.4 g/dL (2-4); Potassium 4.2 mmol/L (3.5-5.0); Total Bilirubin 0.3 mg/dL (0.2-1.0); Total Protein 5.7 g/dL (6.4-8.9); eGFR CKD-EPI 64.2 (>60)
[2024-03-19 07:33] LABS: ABS Eosinophils 0.1 10^3/uL (0.0-0.5); ABS Lymphocytes 1.2 10^3/uL (1.0-4.8); ABS Monocytes 0.4 10^3/uL (0.0-0.9); ABS Neutrophils 2.9 10^3/uL (1.5-7.6); Eosinophil % 3.3 %; Hematocrit 38.2 % (35-45); Hemoglobin 12.1 g/dL (11.5-14.3); Lymphocyte % 25.4 %; Mean Corpuscular Hgb Conc 31.8 g/dL (31-36); Mean Corpuscular Volume 97.4 fL (80-97); Mean Platelet Volume 8.7 fL (7.5-11.2); Nucleated Red Blood Cells % 0.1 %/100WBC (0.0-0.8); Platelet Count 163 10^3/uL (150-450); Red Blood Count 3.92 10^6/uL (3.63-4.92); Red Cell Distribution Width 15.8 % (12-17); White Blood Count 4.5 10^3/uL (3.8-11.8)
[2024-03-19 09:33] LABS: BF PH 7.6
[2024-03-19 14:12] LABS: Glucose, BF < 2 mg/dL; Total Protein, BF 0.5 g/dL
[2024-03-20 05:59] LABS: ABS Basophils 0.1 10^3/uL (0.0-0.1); ABS Eosinophils 0.2 10^3/uL (0.0-0.5); ABS Lymphocytes 1.3 10^3/uL (1.0-4.8); ABS Monocytes 0.5 10^3/uL (0.0-0.9); ABS Neutrophils 5.2 10^3/uL (1.5-7.6); Eosinophil % 2.3 %; Hematocrit 40.7 % (35-45); Hemoglobin 13.4 g/dL (11.5-14.3); Lymphocyte % 18.2 %; Mean Corpuscular Hemoglobin 30.2 pg (27-33); Mean Corpuscular Hgb Conc 32.9 g/dL (31-36); Mean Corpuscular Volume 91.6 fL (80-97); Mean Platelet Volume 8.2 fL (7.5-11.2); Platelet Count 230 10^3/uL (150-450); Red Blood Count 4.45 10^6/uL (3.63-4.92); Red Cell Distribution Width 14.3 % (12-17); White Blood Count 7.3 10^3/uL (3.8-11.8)
[2024-03-20 06:19] LABS: Albumin 3.8 g/dL (3.2-5.2); Albumin/Globulin Ratio 1.4 (1-3); Calcium 9.3 mg/dL (8.6-10.3); Creatinine, Serum 0.87 mg/dL (0.51-0.95); Globulin 2.8 g/dL (2-4); Magnesium 2.1 mg/dL (1.9-2.7); Potassium 4.1 mmol/L (3.5-5.0); Total Bilirubin 0.5 mg/dL (0.2-1.0); Total Protein 6.6 g/dL (6.4-8.9); eGFR CKD-EPI 67.7 (>60)
[2024-03-20] MEDS ORDERED: Naloxone 0.4 mg VIAL 0.4 mg/ml 1 ml VIAL IV PRN (11:34)
[2024-03-20] MEDS ORDERED: Ondansetron 4 mg VIAL 2 MG/ML 2 ml VIAL IV PRN (11:34)
[2024-03-20] MEDS ORDERED: Propofol 10 MG/ML 20 ML BTL ONE (12:19)
[2024-03-20] MEDS ORDERED: Rocuronium 50 mg VIAL 10 mg/ml 5 ml VIAL (50 mg) ONE (12:19)
[2024-03-20] MEDS ORDERED: Lidocaine 2% PF 5 ML VIAL ONE (12:19)
[2024-03-20] MEDS ORDERED: fentaNYL 250 mcg/5 ml 50 MCG/ML 5 ml VIAL (250 MCG) ONE (12:19)
[2024-03-20] MEDS ORDERED: Ondansetron 4 mg VIAL 2 MG/ML 2 ml VIAL ONE (12:19)
[2024-03-20] MEDS ORDERED: Dexamethasone IV 4 MG/ML VIAL 1 ml VIAL ONE ×2 (12:19→13:07)
[2024-03-20] MEDS ORDERED: Midazolam 2 mg/2 ml VIAL 1 mg/ml 2 ml VIAL (2 mg) ONE ×2 (12:19→13:07)
[2024-03-20] MEDS ORDERED: Ropivacaine 5 MG/ML 20 ML VIAL 0.5% (100 MG) ONE (13:05)
[2024-03-20] MEDS ORDERED: fentaNYL 100 mcg/2 ml 50 MCG/ML VIAL ONE ×2 (13:07→16:32)
[2024-03-20] MEDS ORDERED: Glycopyrrolate IV 0.2 MG/ML 1 ML VIAL ONE (14:37)
[2024-03-20] MEDS ORDERED: Bupivacaine 0.25% w/EPI 10 ML SDV ONE (15:19)
[2024-03-20] MEDS ORDERED: HYDROmorphone 0.5 MG/0.5 ML SYRINGE ONE (15:24)
[2024-03-20] MEDS: fentaNYL 100 mcg/2 ml 50 MCG/ML VIAL IV PRN (16:35)
[2024-03-20] MEDS ORDERED: Acetaminophen IV 1 GM/100ML 1,000 MG/100 ML BAG IV ONE (16:36)
[2024-03-20] MEDS: Acetaminophen IV 1 GM/100ML 1,000 MG/100 ML BAG IV ONE (16:38)
[2024-03-20] MEDS: Ertapenem 1 GM in NS 0.9% 50 ML IVPB ONE (17:52)
[2024-03-20] MEDS: Lactated Ringers 1000 ml BAG 1,000 ML IV SCH (17:52)
[2024-03-20] MEDS: Buffered Lidocaine 1% SYRIN 1 ml INTRADERM ONE (17:53)
[2024-03-21 06:23] LABS: ABS Lymphocytes 0.4 10^3/uL (1.0-4.8); ABS Monocytes 0.7 10^3/uL (0.0-0.9); ABS Neutrophils 16.9 10^3/uL (1.5-7.6); Hematocrit 41.7 % (35-45); Hemoglobin 13.7 g/dL (11.5-14.3); Lymphocyte % 2.3 %; Mean Corpuscular Hemoglobin 30.4 pg (27-33); Mean Corpuscular Hgb Conc 32.8 g/dL (31-36); Mean Corpuscular Volume 92.8 fL (80-97); Mean Platelet Volume 8.4 fL (7.5-11.2); Platelet Count 204 10^3/uL (150-450); Red Cell Distribution Width 14.7 % (12-17)
[2024-03-21 07:16] LABS: Calcium 9.2 mg/dL (8.6-10.3); Potassium 4.7 mmol/L (3.5-5.0); eGFR CKD-EPI 57.3 (>60)
[2024-03-21] MEDS: NS 0.9% 500 ml BAG 500 ML IV ONE (09:31)
[2024-03-21] MEDS: Lactated Ringers 1000 ml BAG 1,000 ML IV ONE (18:02)
[2024-03-22 06:36] LABS: ABS Lymphocytes 0.5 10^3/uL (1.0-4.8); ABS Monocytes 0.4 10^3/uL (0.0-0.9); ABS Neutrophils 10.1 10^3/uL (1.5-7.6); Eosinophil % 0.4 %; Hematocrit 34.9 % (35-45); Hemoglobin 11.7 g/dL (11.5-14.3); Lymphocyte % 4.7 %; Mean Corpuscular Hemoglobin 30.9 pg (27-33); Mean Corpuscular Hgb Conc 33.5 g/dL (31-36); Mean Corpuscular Volume 92.4 fL (80-97); Platelet Count 170 10^3/uL (150-450); Red Blood Count 3.77 10^6/uL (3.63-4.92); Red Cell Distribution Width 14.9 % (12-17); White Blood Count 11.1 10^3/uL (3.8-11.8)
[2024-03-22 06:45] LABS: Calcium 8.9 mg/dL (8.6-10.3); Creatinine, Serum 1.08 mg/dL (0.51-0.95); Potassium 4.3 mmol/L (3.5-5.0); eGFR CKD-EPI 52.3 (>60)
[2024-03-22] MEDS: Lactated Ringers 1000 ml BAG 1,000 ML IV ONE (10:08)
[2024-03-23 06:29] LABS: Anion Gap 10 mmol/L (2-16); Blood Urea Nitrogen 24 mg/dL (6-24); CO2 Carbon Dioxide 22 mmol/L (22-32); Calcium 8.8 mg/dL (8.6-10.3); Chloride 101 mmol/L (101-111); Glucose 106 mg/dL (70-100); Sodium 133 mmol/L (135-145); eGFR CKD-EPI 87.9 (>60)
[2024-03-23] MEDS: Ondansetron ODT 4 mg TAB 4 MG TAB SL PRN (12:32)
[2024-03-24 08:10] LABS: ABS Lymphocytes 0.2 10^3/uL (1.0-4.8); ABS Monocytes 0.2 10^3/uL (0.0-0.9); ABS Neutrophils 8.8 10^3/uL (1.5-7.6); ABS Nucleated RBC 0.01 10^3/ul; Eosinophil % 0.2 %; Hematocrit 37.6 % (35-45); Hemoglobin 12.8 g/dL (11.5-14.3); Lymphocyte % 2.4 %; Mean Corpuscular Hemoglobin 31.3 pg (27-33); Mean Corpuscular Hgb Conc 34.1 g/dL (31-36); Mean Corpuscular Volume 91.7 fL (80-97); Mean Platelet Volume 8.7 fL (7.5-11.2); Nucleated Red Blood Cells % 0.1 %/100WBC (0.0-0.8); Platelet Count 254 10^3/uL (150-450); Red Cell Distribution Width 14.6 % (12-17); White Blood Count 9.3 10^3/uL (3.8-11.8)
[2024-03-24 08:50] LABS: Calcium 8.7 mg/dL (8.6-10.3); Creatinine, Serum 0.83 mg/dL (0.51-0.95); Magnesium 1.9 mg/dL (1.9-2.7); Potassium 4.7 mmol/L (3.5-5.0); eGFR CKD-EPI 71.7 (>60)
[2024-03-24] MEDS: Lidocaine 2% JELLY 6 ML Topical TOPICAL ONE (09:31)
[2024-03-24] MEDS: D5W 1/2 NS 1000 ml BAG 1,000 ML IV SCH (10:16)
[2024-03-24] MEDS ORDERED: NS 0.9% 1000 ml BAG 1,000 ML IV SCH (11:00)
[2024-03-24] MEDS: D5NS 0.9% 1000 ml BAG 1,000 ML IV SCH (11:51)
[2024-03-24] MEDS ORDERED: Acetaminophen IV 1 GM/100ML 750 MG/75 ML BAG IV SCH ×2 (12:00)
[2024-03-24] MEDS: Acetaminophen IV 1 GM/100ML 750 MG/75 ML BAG IV SCH (12:32)
[2024-03-25 06:11] LABS: ABS Eosinophils 0.3 10^3/uL (0.0-0.5); ABS Lymphocytes 0.4 10^3/uL (1.0-4.8); ABS Monocytes 0.5 10^3/uL (0.0-0.9); ABS Neutrophils 4.7 10^3/uL (1.5-7.6); ABS Nucleated RBC 0.01 10^3/ul; Eosinophil % 4.3 %; Hematocrit 31.5 % (35-45); Hemoglobin 10.6 g/dL (11.5-14.3); Lymphocyte % 7.5 %; Mean Corpuscular Hemoglobin 30.9 pg (27-33); Mean Corpuscular Hgb Conc 33.7 g/dL (31-36); Mean Corpuscular Volume 91.6 fL (80-97); Mean Platelet Volume 8.6 fL (7.5-11.2); Nucleated Red Blood Cells % 0.1 %/100WBC (0.0-0.8); Platelet Count 215 10^3/uL (150-450); Red Blood Count 3.44 10^6/uL (3.63-4.92); Red Cell Distribution Width 14.4 % (12-17); White Blood Count 5.9 10^3/uL (3.8-11.8)
[2024-03-25 06:30] LABS: Calcium 8.1 mg/dL (8.6-10.3); Creatinine, Serum 0.77 mg/dL (0.51-0.95); Magnesium 1.8 mg/dL (1.9-2.7); Potassium 3.7 mmol/L (3.5-5.0); eGFR CKD-EPI 78.4 (>60)
[2024-03-25] MEDS: Magnesium Sulfate 2 gm BAG 2 GM/50 ML BAG IVPB ONE (08:03)
[2024-03-26] MEDS: Morphine 2 MG/ML SYRINGE IV PRN (05:07)
[2024-03-26 06:44] LABS: ABS Eosinophils 0.2 10^3/uL (0.0-0.5); ABS Lymphocytes 0.4 10^3/uL (1.0-4.8); ABS Monocytes 0.2 10^3/uL (0.0-0.9); ABS Neutrophils 2.5 10^3/uL (1.5-7.6); Eosinophil % 4.7 %; Hematocrit 41.7 % (35-45); Hemoglobin 13.1 g/dL (11.5-14.3); Lymphocyte % 12.6 %; Mean Corpuscular Hemoglobin 31.1 pg (27-33); Mean Corpuscular Hgb Conc 31.4 g/dL (31-36); Mean Corpuscular Volume 99.2 fL (80-97); Mean Platelet Volume 8.3 fL (7.5-11.2); Nucleated Red Blood Cells % 0.1 %/100WBC (0.0-0.8); Platelet Count 188 10^3/uL (150-450); Red Cell Distribution Width 16.2 % (12-17); White Blood Count 3.3 10^3/uL (3.8-11.8)
[2024-03-26 08:37] LABS: Calcium 8.3 mg/dL (8.6-10.3); Creatinine, Serum 0.73 mg/dL (0.51-0.95); Potassium 3.9 mmol/L (3.5-5.0); eGFR CKD-EPI 83.6 (>60)
[2024-03-26 12:14] LABS: Albumin 2.8 g/dL (3.2-5.2); Albumin/Globulin Ratio 1.1 (1-3); Calcium 8.4 mg/dL (8.6-10.3); Creatinine, Serum 0.63 mg/dL (0.51-0.95); Globulin 2.5 g/dL (2-4); Magnesium 1.9 mg/dL (1.9-2.7); Phosphorus 2.7 mg/dL (2.5-5.0); Potassium 3.7 mmol/L (3.5-5.0); Total Bilirubin 0.7 mg/dL (0.2-1.0); Total Protein 5.3 g/dL (6.4-8.9); eGFR CKD-EPI 90.2 (>60)
[2024-03-26] MEDS: Sodium Phosphate ADULT ENEMA 133 ML BTL PR SCH (14:07)
[2024-03-26] MEDS: PPN (PERIPHERAL) 24 HR with D10W 1000 ml BAG 1,000 ML, Amino Acid Infusion 10% 850 ML, ... IV SCH ×2 (18:01→18:49)
[2024-03-27 06:42] LABS: Albumin 2.7 g/dL (3.2-5.2); Albumin/Globulin Ratio 1.1 (1-3); Calcium 8.8 mg/dL (8.6-10.3); Creatinine, Serum 0.66 mg/dL (0.51-0.95); Globulin 2.5 g/dL (2-4); Magnesium 2.1 mg/dL (1.9-2.7); Potassium 3.8 mmol/L (3.5-5.0); Total Bilirubin 0.8 mg/dL (0.2-1.0); Total Protein 5.2 g/dL (6.4-8.9); eGFR CKD-EPI 89.2 (>60)
[2024-03-27] MEDS: Lactated Ringers 1000 ml BAG 1,000 ML IV SCH (11:50)
[2024-03-27] MEDS: Iohexol 350 (CONTRAST) 500 ML MDV IV ONE (14:53)
[2024-03-27] MEDS: TPN 24 HR with Sodium Chloride CONC. 4 MEQ/ML 100 MEQ, Potassium Chloride TPN 50 MEQ, C... CENT\\PICC SCH ×2 (17:49→19:03)
[2024-03-27] MEDS: Lactated Ringers 1000 ml BAG 1,000 ML IV ONE (18:52)
[2024-03-28 06:06] LABS: ABS Eosinophils 0.1 10^3/uL (0.0-0.5); ABS Lymphocytes 0.4 10^3/uL (1.0-4.8); ABS Monocytes 0.3 10^3/uL (0.0-0.9); ABS Neutrophils 6.6 10^3/uL (1.5-7.6); Eosinophil % 1.7 %; Hematocrit 32.3 % (35-45); Hemoglobin 10.7 g/dL (11.5-14.3); Lymphocyte % 5.2 %; Mean Corpuscular Hemoglobin 30.2 pg (27-33); Mean Corpuscular Hgb Conc 33.3 g/dL (31-36); Mean Corpuscular Volume 90.7 fL (80-97); Mean Platelet Volume 8.1 fL (7.5-11.2); Nucleated Red Blood Cells % 0.1 %/100WBC (0.0-0.8); Platelet Count 262 10^3/uL (150-450); Red Blood Count 3.56 10^6/uL (3.63-4.92); Red Cell Distribution Width 14.6 % (12-17); White Blood Count 7.5 10^3/uL (3.8-11.8)
[2024-03-28 06:39] LABS: Albumin 2.6 g/dL (3.2-5.2); Calcium 8.7 mg/dL (8.6-10.3); Creatinine, Serum 0.61 mg/dL (0.51-0.95); Globulin 2.5 g/dL (2-4); Magnesium 1.9 mg/dL (1.9-2.7); Phosphorus 2.3 mg/dL (2.5-5.0); Potassium 3.6 mmol/L (3.5-5.0); Total Bilirubin 0.8 mg/dL (0.2-1.0); Total Protein 5.1 g/dL (6.4-8.9); eGFR CKD-EPI 90.9 (>60)
[2024-03-28] MEDS ORDERED: Bupivacaine 0.25% EPI 200,000 30 ML SDV ONE (08:32)
[2024-03-28] MEDS ORDERED: Rocuronium 50 mg VIAL 10 mg/ml 5 ml VIAL (50 mg) ONE ×2 (08:47→10:27)
[2024-03-28] MEDS ORDERED: Dexamethasone IV 4 MG/ML VIAL 1 ml VIAL ONE (08:48)
[2024-03-28] MEDS ORDERED: Lidocaine 2% PF 5 ML VIAL ONE (08:48)
[2024-03-28] MEDS ORDERED: Propofol 10 MG/ML 20 ML BTL ONE (08:48)
[2024-03-28] MEDS ORDERED: Ondansetron 4 mg VIAL 2 MG/ML 2 ml VIAL ONE (08:48)
[2024-03-28] MEDS ORDERED: fentaNYL 100 mcg/2 ml 50 MCG/ML VIAL ONE ×2 (09:32→11:46)
[2024-03-28] MEDS ORDERED: ROPIVACAINE 5 MG/ML 30 ML BTL (0.5%) ONE (10:43)
[2024-03-28] MEDS ORDERED: HYDROmorphone 1 MG/1 ML SYRINGE IV PRN (11:41)
[2024-03-28] MEDS ORDERED: Naloxone 0.4 mg VIAL 0.4 mg/ml 1 ml VIAL IV PRN (11:41)
[2024-03-28] MEDS: fentaNYL 100 mcg/2 ml 50 MCG/ML VIAL IV PRN (11:47)
[2024-03-28] MEDS ORDERED: Zosyn per Pharmacy NOTE FOLLOW UP SCH (12:00)
[2024-03-28] MEDS: Ondansetron 4 mg VIAL 2 MG/ML 2 ml VIAL IV PRN (12:43)
[2024-03-28] MEDS: Ertapenem 1 GM in NS 0.9% 50 ML IVPB ONE (12:56)
[2024-03-28] MEDS: Piperacillin/Tazobac 3.375 BAG 3.375 GM/100 ML BAG IV ONE (13:23)
[2024-03-28] MEDS: Potassium Phosphate IV 15 MMOL in NS 0.9% 250 ml 250 ML IVPB ONE (13:58)
[2024-03-28] MEDS: TPN CENTRAL STANDARD BASE A CENT\\PICC SCH (17:09)
[2024-03-28] MEDS: ZOSYN 3.375 GM Q8H per EXTENDED INFUSION IV SCH (17:18)
[2024-03-28] MEDS: Enoxaparin 40 MG/0.4 ML SYR SUBCUT SCH (20:35)
[2024-03-29 07:26] LABS: Albumin 2.3 g/dL (3.2-5.2); Calcium 8.2 mg/dL (8.6-10.3); Creatinine, Serum 0.72 mg/dL (0.51-0.95); Globulin 2.4 g/dL (2-4); Magnesium 1.8 mg/dL (1.9-2.7); Phosphorus 3.4 mg/dL (2.5-5.0); Potassium 4.5 mmol/L (3.5-5.0); Total Bilirubin 0.5 mg/dL (0.2-1.0); Total Protein 4.7 g/dL (6.4-8.9)
[2024-03-29] MEDS: Magnesium Sulfate 2 gm BAG 2 GM/50 ML BAG IVPB ONE (10:39)
[2024-03-29 11:54] LABS: ABS Lymphocytes 0.3 10^3/uL (1.0-4.8); ABS Monocytes 0.6 10^3/uL (0.0-0.9); ABS Neutrophils 9.1 10^3/uL (1.5-7.6); Hematocrit 34.2 % (35-45); Hemoglobin 11.3 g/dL (11.5-14.3); Lymphocyte % 3.1 %; Mean Corpuscular Hemoglobin 30.3 pg (27-33); Mean Corpuscular Volume 91.6 fL (80-97); Mean Platelet Volume 8.7 fL (7.5-11.2); Platelet Count 296 10^3/uL (150-450); Red Blood Count 3.73 10^6/uL (3.63-4.92); Red Cell Distribution Width 14.6 % (12-17); White Blood Count 10.1 10^3/uL (3.8-11.8)
[2024-03-30 02:33] LABS: Urine Appearance Turbid; Urine Bilirubin Negative (Negative); Urine Blood 1+ (Negative); Urine Color Yellow; Urine Glucose Trace (Negative); Urine Ketones Negative (Negative); Urine Nitrite 1+ (Negative); Urine Protein 1+ (>=30 mg/dL) (Negative); Urine Specific Gravity 1.033 (1.002-1.030); Urine Urobilinogen Negative (Negative)
[2024-03-30 02:43] LABS: Urine Bacteria Absent /HPF (Absent); Urine Red Blood Cell 1+(3-5/hpf) /HPF (0-Trace); Urine Squamous Epithelial Cell Present /HPF (Absent); Urine White Blood Cell 2+(11-20/hpf) /HPF (0-Trace)
[2024-03-30 08:20] LABS: ABS Eosinophils 0.1 10^3/uL (0.0-0.5); ABS Lymphocytes 0.4 10^3/uL (1.0-4.8); ABS Monocytes 0.5 10^3/uL (0.0-0.9); ABS Neutrophils 6.7 10^3/uL (1.5-7.6); Eosinophil % 1.9 %; Hemoglobin 9.5 g/dL (11.5-14.3); Lymphocyte % 5.6 %; Mean Corpuscular Hemoglobin 30.9 pg (27-33); Mean Corpuscular Hgb Conc 33.9 g/dL (31-36); Mean Corpuscular Volume 91.3 fL (80-97); Platelet Count 251 10^3/uL (150-450); Red Blood Count 3.07 10^6/uL (3.63-4.92); Red Cell Distribution Width 14.8 % (12-17); White Blood Count 7.8 10^3/uL (3.8-11.8)
[2024-03-30 08:58] LABS: Albumin 2.1 g/dL (3.2-5.2); Albumin/Globulin Ratio 0.9 (1-3); Calcium 7.8 mg/dL (8.6-10.3); Creatinine, Serum 0.6 mg/dL (0.51-0.95); Globulin 2.4 g/dL (2-4); Phosphorus 2.6 mg/dL (2.5-5.0); Potassium 4.4 mmol/L (3.5-5.0); Total Bilirubin 0.5 mg/dL (0.2-1.0); Total Protein 4.5 g/dL (6.4-8.9); eGFR CKD-EPI 91.2 (>60)
[2024-03-31 07:10] LABS: ABS Eosinophils 0.2 10^3/uL (0.0-0.5); ABS Lymphocytes 0.6 10^3/uL (1.0-4.8); ABS Monocytes 0.7 10^3/uL (0.0-0.9); ABS Neutrophils 7.5 10^3/uL (1.5-7.6); Hematocrit 30.8 % (35-45); Hemoglobin 10.4 g/dL (11.5-14.3); Lymphocyte % 6.3 %; Mean Corpuscular Hgb Conc 33.7 g/dL (31-36); Platelet Count 333 10^3/uL (150-450); Red Blood Count 3.35 10^6/uL (3.63-4.92)
[2024-03-31 07:48] LABS: Albumin 2.3 g/dL (3.2-5.2); Albumin/Globulin Ratio 0.9 (1-3); Calcium 8.3 mg/dL (8.6-10.3); Creatinine, Serum 0.54 mg/dL (0.51-0.95); Globulin 2.7 g/dL (2-4); Magnesium 1.8 mg/dL (1.9-2.7); Phosphorus 2.5 mg/dL (2.5-5.0); Potassium 4.6 mmol/L (3.5-5.0); Total Bilirubin 0.4 mg/dL (0.2-1.0); eGFR CKD-EPI 93.6 (>60)
[2024-03-31] MEDS: Alteplase (CATHFLO) 2 MG VIAL IV ONE (09:01)
[2024-03-31] MEDS: Famotidine IV 10 MG/ML 2 ml VIAL (20 mg) IV SLOW PU SCH (11:39)
[2024-03-31] MEDS: Magnesium Sulfate 2 gm BAG 2 GM/50 ML BAG IVPB ONE (14:15)
[2024-04-01 09:12] LABS: Calcium 8.3 mg/dL (8.6-10.3); Creatinine, Serum 0.54 mg/dL (0.51-0.95); Potassium 4.4 mmol/L (3.5-5.0); eGFR CKD-EPI 93.6 (>60)
[2024-04-01 09:19] LABS: Hematocrit 31.1 % (35-45); Hemoglobin 10.2 g/dL (11.5-14.3); Mean Corpuscular Hgb Conc 32.8 g/dL (31-36); Mean Corpuscular Volume 91.3 fL (80-97); Mean Platelet Volume 8.3 fL (7.5-11.2); Platelet Count 428 10^3/uL (150-450); Red Blood Count 3.41 10^6/uL (3.63-4.92); Red Cell Distribution Width 14.7 % (12-17); White Blood Count 11.4 10^3/uL (3.8-11.8)
[2024-04-01 10:09] LABS: ABS Eosinophils 0.1 10^3/uL (0.0-0.5); ABS Lymphocytes 0.4 10^3/uL (1.0-4.8); ABS Monocytes 0.8 10^3/uL (0.0-0.9); ABS Neutrophils 10.1 10^3/uL (1.5-7.6); Eosinophil % 0.7 %; Lymphocyte % 3.7 %
[2024-04-02] MEDS: Albuterol/Ipratropium NEB.SOL (2.5/0.5 MG) 3 ML NEB.SOLN INH SCH (18:09)
[2024-04-03 05:51] LABS: Albumin 2.3 g/dL (3.2-5.2); Albumin/Globulin Ratio 0.8 (1-3); Creatinine, Serum 0.46 mg/dL (0.51-0.95); Globulin 2.9 g/dL (2-4); Magnesium 1.8 mg/dL (1.9-2.7); Phosphorus 2.7 mg/dL (2.5-5.0); Potassium 4.5 mmol/L (3.5-5.0); Total Bilirubin 0.5 mg/dL (0.2-1.0); Total Protein 5.2 g/dL (6.4-8.9); eGFR CKD-EPI 97.3 (>60)
[2024-04-03] MEDS: Magnesium Sulfate 2 gm BAG 2 GM/50 ML BAG IVPB ONE (09:41)
[2024-04-04] MEDS: Albuterol 2.5mg/3 ml (0.083%) NEB.SOLN INH PRN (00:53)
[2024-04-04] MEDS: Acetaminophen IV 1 GM/100ML 750 MG/75 ML BAG IV SCH (03:11)
[2024-04-04 06:04] LABS: Hematocrit 25.4 % (35-45); Hemoglobin 8.6 g/dL (11.5-14.3); Mean Corpuscular Hemoglobin 30.8 pg (27-33); Mean Corpuscular Hgb Conc 33.8 g/dL (31-36); Mean Corpuscular Volume 91.2 fL (80-97); Mean Platelet Volume 8.2 fL (7.5-11.2); Platelet Count 405 10^3/uL (150-450); Red Blood Count 2.78 10^6/uL (3.63-4.92); Red Cell Distribution Width 14.8 % (12-17); White Blood Count 11.7 10^3/uL (3.8-11.8)
[2024-04-04 06:27] LABS: Albumin 2.3 g/dL (3.2-5.2); Albumin/Globulin Ratio 0.8 (1-3); Calcium 7.9 mg/dL (8.6-10.3); Creatinine, Serum 0.5 mg/dL (0.51-0.95); Globulin 2.8 g/dL (2-4); Magnesium 2.1 mg/dL (1.9-2.7); Phosphorus 2.8 mg/dL (2.5-5.0); Potassium 4.5 mmol/L (3.5-5.0); Total Bilirubin 0.5 mg/dL (0.2-1.0); Total Protein 5.1 g/dL (6.4-8.9); eGFR CKD-EPI 95.3 (>60)
[2024-04-04 08:19] LABS: ABS Eosinophils 0.2 10^3/uL (0.0-0.5); ABS Lymphocytes 0.7 10^3/uL (1.0-4.8); ABS Monocytes 0.8 10^3/uL (0.0-0.9); Eosinophil % 1.6 %
[2024-04-04] MEDS: Famotidine IV 10 MG/ML 2 ml VIAL (20 mg) ONE (15:19)
[2024-04-04] MEDS: TPN CENTRAL STANDARD BASE A CENT\\PICC SCH (17:50)
[2024-04-04] MEDS: TPN 24 HR with Dextrose 50% Water 500 ML, Amino Acid Infusion 10% 1,000 ML, Lipid Emuls... CENT\\PICC SCH (18:17)
[2024-04-06 09:31] LABS: ABS Eosinophils 0.1 10^3/uL (0.0-0.5); ABS Lymphocytes 0.8 10^3/uL (1.0-4.8); ABS Monocytes 0.9 10^3/uL (0.0-0.9); Eosinophil % 0.6 %; Hematocrit 29.6 % (35-45); Hemoglobin 9.9 g/dL (11.5-14.3); Mean Corpuscular Hemoglobin 30.4 pg (27-33); Mean Corpuscular Hgb Conc 33.3 g/dL (31-36); Mean Corpuscular Volume 91.3 fL (80-97); Mean Platelet Volume 8.5 fL (7.5-11.2); Platelet Count 589 10^3/uL (150-450); Red Blood Count 3.24 10^6/uL (3.63-4.92); Red Cell Distribution Width 14.8 % (12-17); White Blood Count 15.9 10^3/uL (3.8-11.8)
[2024-04-06 09:51] LABS: Calcium 8.6 mg/dL (8.6-10.3); Creatinine, Serum 0.56 mg/dL (0.51-0.95); Potassium 4.3 mmol/L (3.5-5.0); eGFR CKD-EPI 92.8 (>60)
[2024-04-06 11:12] VITALS: BP 119/67
== END 2024-04-06 12:05 | DRG 329 ==
LOC: EDHOLD 15:21 → ED 15:21 → MED 03-09 12:26 → SUATTDRO 03-11 10:00 → MED 03-11 10:00 → SSU 03-20 17:23
PROVIDERS: ADMIT Internal Medicine; ATTEND Student in an Organized Health Care Education/Training Program